=== PATIENT | male | born 1935 | race Caucasian/White ===

== ENCOUNTER 2016-12-12 18:38 | Inpatient (IN) | payer OTHER ==
[~2016-12-12] VITALS: Ht 172.7 cm; Wt 122.7 kg
[~2016-12-12 18:38] MED LIST: ALLOPURINOL100 MG PO; ASCORBIC ACID500 M3 PO; CLARITIN10 MG PO; COUMADIN5 MG PO; FERROUS SULFAT325 MG PO; FUROSEMIDE40 MG PO; LABETALOL HCL200 MG PO; LOSARTAN POTASS50 MG PO; MULTIVITAMIN1 EAC2 PO; NIFEDIPINE ER30 MG PO; SENNA-TIME S T1 EACH PO; STOOL SOFTENER100 M1 PO; TRAMADOL HCL50 MG PO; TYLENOL EXTRA500 MG PO
[2016-12-12 19:14] LABS: EOSINOPHIL (%) 0.7 % (0-5); EOSINOPHIL COUNT 0.1 K/uL (0-0.3); HEMATOCRIT 31.8 % (38.0-50.0); IMMATURE GRANULOCYTE (%) 0.4 % (0.0-0.7); INSTRUMENT ABS NEUTROPHIL CT 5.4 K/uL; LYMPHOCYTE COUNT 0.6 K/uL (1.0-2.8); MCH 27.4 PG (29.0-34.0); MCHC 29.9 G/DL (30.0-36.0); MCV 91.6 FL (86-99); MEAN PLAT.VOLUME 10.1 uM^3 (9.0-12.4); MONOCYTE COUNT 1.3 K/uL (0-0.8); NEUTROPHIL (%) 72.3 % (45-76); NEUTROPHIL COUNT 5.4 K/uL (1.8-6.4); PLATELET COUNT 466 K/uL (156-360); RBC DIS.WIDTH-CV 14.1 % (11.8-14.6); RBC DIS.WIDTH-SD 47.3 % (39-53); RED BLOOD COUNT 3.47 M/uL (4.00-5.50); WHITE BLOOD COUNT 7.4 K/uL (4.1-10.2)
[2016-12-12 19:22] LABS: CHLORIDE 102 mEq/L (99-109); POTASSIUM 4.4 mEq/L (3.7-5.4); SODIUM 134 mEq/L (136-147)
[2016-12-12 19:23] LABS: MAGNESIUM 2.4 mg/dL (1.3-2.7)
[2016-12-12 19:24] LABS: GLUCOSE 101 mg/dL (70-99)
[2016-12-12 19:26] LABS: ANION GAP 15 MEQ/L (2-14)
[2016-12-12 19:28] LABS: GFR ESTIMATE (CALCULATED) 19 mL/min/
[2016-12-12 19:29] LABS: UREA NITROGEN (BUN) 78 mg/dL (9-23)
[2016-12-12 19:51] LABS: PROTHROMBIN TIME 137.9 (9.2-11.2)
[2016-12-12 19:54] LABS: INTER. NORMALIZED RATIO 12.5
[2016-12-12] MEDS ORDERED: LOSARTAN POTAS100 MG PO (20:47)
[2016-12-12] MEDS ORDERED: WARFARIN SODIUM1 MG PO (20:48)
[2016-12-12] MEDS ORDERED: PROMETHAZINE HC25 M1 PO (20:49)
[2016-12-12 22:33] VITALS: BP 140/70
[2016-12-13 02:24] VITALS: BP 90/53
[2016-12-13 06:32] LABS: HEMATOCRIT 28.1 % (38.0-50.0); MCH 27.4 PG (29.0-34.0); MCHC 29.2 G/DL (30.0-36.0); MEAN PLAT.VOLUME 10.2 uM^3 (9.0-12.4); PLATELET COUNT 363 K/uL (156-360); RBC DIS.WIDTH-CV 14.1 % (11.8-14.6); RBC DIS.WIDTH-SD 48.5 % (39-53); RED BLOOD COUNT 2.99 M/uL (4.00-5.50)
[2016-12-13 06:33] LABS: WHITE BLOOD COUNT 4.8 K/uL (4.1-10.2)
[2016-12-13 06:57] LABS: ALKALINE PHOSPHATASE 94 IU/L (3-129); ANION GAP 10 MEQ/L (2-14); CHLORIDE 105 MEQ/L (99-109); GFR ESTIMATE (CALCULATED) 23 mL/min/; GLUCOSE 73 mg/dL (70-99); POTASSIUM 4.3 MEQ/L (3.7-5.4); SAMPLE HEMOLYSIS CHECK 0; SAMPLE ICTERIC CHECK 0; SAMPLE LIPEMIA CHECK 0; SODIUM 137 MEQ/L (136-147); TOTAL BILIRUBIN 0.3 MG/DL (0.0-1.0); UREA NITROGEN (BUN) 73 mg/dL (9-23)
[2016-12-13 07:17] VITALS: BP 106/55
[2016-12-13 07:24] LABS: INTER. NORMALIZED RATIO 2.2; PROTHROMBIN TIME 22.7 (9.2-11.2)
[2016-12-13 11:42] VITALS: BP 102/52
[2016-12-13 15:03] VITALS: BP 116/58
[2016-12-13 19:00] VITALS: BP 137/67
[2016-12-13 22:35] VITALS: BP 125/66
[2016-12-14] VITALS (9 sets, daily range): BP systolic 116–155; BP diastolic 55–90
[2016-12-14 07:09] LABS: HEMATOCRIT 28.4 % (38.0-50.0); MCH 27.5 PG (29.0-34.0); MCHC 28.5 G/DL (30.0-36.0); MCV 96.3 FL (86-99); MEAN PLAT.VOLUME 10.4 uM^3 (9.0-12.4); PLATELET COUNT 351 K/uL (156-360); RBC DIS.WIDTH-CV 14.4 % (11.8-14.6); RBC DIS.WIDTH-SD 50.9 % (39-53); RED BLOOD COUNT 2.95 M/uL (4.00-5.50); WHITE BLOOD COUNT 4.6 K/uL (4.1-10.2)
[2016-12-14 07:29] LABS: INTER. NORMALIZED RATIO 1.3; PROTHROMBIN TIME 13.4 (9.2-11.2); PTT 33.5 (25-32)
[2016-12-14 07:43] LABS: ALKALINE PHOSPHATASE 82 IU/L (3-129); ANION GAP 14 MEQ/L (2-14); CHLORIDE 111 MEQ/L (99-109); GFR ESTIMATE (CALCULATED) 31 mL/min/; GLUCOSE 60 mg/dL (70-99); MAGNESIUM 2.6 mg/dl (1.3-2.7); POTASSIUM 4.6 MEQ/L (3.7-5.4); PREALBUMIN 6.4 mg/dL (10-40); SAMPLE HEMOLYSIS CHECK 0; SAMPLE ICTERIC CHECK 0; SAMPLE LIPEMIA CHECK 0; SODIUM 143 MEQ/L (136-147); TOTAL BILIRUBIN 0.3 MG/DL (0.0-1.0); UREA NITROGEN (BUN) 54 mg/dL (9-23)
[2016-12-14 20:00] LABS: HEMATOCRIT 26.2 % (38.0-50.0)
[2016-12-14 20:18] LABS: BASE EXCESS -13.1 mEq/L (-3 to +3); BICARBONATE 14.1 mEq/L (22-26); CARBOXY HGB 0.7 % (0-5); COMMENTS - BLOOD GASES A+C+; DEVICE VENT; FI02 50 %; MECHANICAL RATE 16 resp/min; METHEMOGLOBIN 0.6 % (0-1.5); MODE AC; PCO2 37 mm Hg (35-45); PEEP 5 CM/H20; PO2 159 mm Hg (80-100); SITE RR; TIDAL VOLUME 500 ML; TOTAL RESP RATE 18 resp/min
[2016-12-14 20:20] LABS: pH 7.19 (7.35-7.45)
[2016-12-14 20:20] LABS: TROP-I INTERPRETATION NEGATIVE; TROPONIN-I 0.07 ng/mL (0.0-0.30)
[2016-12-14 20:24] LABS: ANION GAP 12 MEQ/L (2-14); CHLORIDE 114 MEQ/L (99-109); GFR ESTIMATE (CALCULATED) 34 mL/min/; POTASSIUM 4.5 MEQ/L (3.7-5.4); SAMPLE HEMOLYSIS CHECK 0; SAMPLE ICTERIC CHECK 0; SAMPLE LIPEMIA CHECK 0; SODIUM 140 MEQ/L (136-147); UREA NITROGEN (BUN) 45 mg/dL (9-23)
[2016-12-14 20:25] LABS: GLUCOSE 117 mg/dL (70-99)
[2016-12-14 22:16] LABS: METH RESISTANT S AUREUS PCR NEGATIVE (NEGATIVE)
[2016-12-14 22:24] LABS: PROBE CHECK PASS; SPECIMEN PROCESSING CONTROL PASS
[2016-12-15] VITALS (21 sets, daily range): BP systolic 91–126; BP diastolic 52–76
[2016-12-15 01:48] LABS: ADD MIUA? YES; BILIRUBIN NEGATIVE; BLOOD SMALL; COLOR YELLOW ((YELLOW)); GLUCOSE (STRIP) NEGATIVE; KETONES 20; LEUKOCYTES NEGATIVE; NITRITE NEGATIVE; PROTEIN (STRIP) NEGATIVE; SPECIFIC GRAVITY 1.015 (1.000-1.030); UROBILINOGEN 0.2 MG/DL (0.2-1.0)
[2016-12-15 01:54] LABS: UR CREATININE CONCENTRATION 73.2 MG/DL
[2016-12-15 01:59] LABS: BACTERIA RARE /HPF; EPITHELIAL CELLS RARE /HPF; HYALINE CASTS 0-5 /LPF; MUCUS TRACE /LPF; RED BLOOD CELLS 40-50 /HPF (0-5)
[2016-12-15 07:13] LABS: HEMATOCRIT 26.8 % (38.0-50.0); MCH 26.7 PG (29.0-34.0); MCHC 28.4 G/DL (30.0-36.0); MEAN PLAT.VOLUME 9.9 uM^3 (9.0-12.4); PLATELET COUNT 323 K/uL (156-360); RBC DIS.WIDTH-CV 16.1 % (11.8-14.6); RBC DIS.WIDTH-SD 56.3 % (39-53); RED BLOOD COUNT 2.85 M/uL (4.00-5.50)
[2016-12-15 07:21] LABS: ANION GAP 9 MEQ/L (2-14); CHLORIDE 113 MEQ/L (99-109); GFR ESTIMATE (CALCULATED) 29 mL/min/; IRON 19 MCG/DL (35-150); POTASSIUM 5.1 MEQ/L (3.7-5.4); SAMPLE HEMOLYSIS CHECK 0; SAMPLE ICTERIC CHECK 0; SAMPLE LIPEMIA CHECK 0; SODIUM 140 MEQ/L (136-147); TRIGLYCERIDES 61 MG/DL (Normal: <150); UREA NITROGEN (BUN) 46 mg/dL (9-23)
[2016-12-15 07:23] LABS: GLUCOSE 283 mg/dL (70-99)
[2016-12-15 07:26] LABS: WHITE BLOOD COUNT 18.8 K/uL (4.1-10.2)
[2016-12-15 08:06] LABS: FERRITIN 47 NG/ML (22-322)
[2016-12-15 08:08] LABS: INTACT PARATHYROID HORMONE 77 pg/mL (10-69)
[2016-12-15 12:47] LABS: POINT-OF-CARE METER ID UU14174217
[2016-12-15 18:19] LABS: POINT-OF-CARE METER ID UU13113731
[2016-12-16] VITALS (19 sets, daily range): BP systolic 103–138; BP diastolic 51–89
[2016-12-16 00:27] LABS: POINT-OF-CARE METER ID UU14174217
[2016-12-16 06:15] LABS: ANION GAP 9 MEQ/L (2-14); CHLORIDE 113 MEQ/L (99-109); GFR ESTIMATE (CALCULATED) 26 mL/min/; GLUCOSE 161 mg/dL (70-99); POTASSIUM 4.3 MEQ/L (3.7-5.4); SAMPLE HEMOLYSIS CHECK 0; SAMPLE ICTERIC CHECK 0; SAMPLE LIPEMIA CHECK 0; SODIUM 143 MEQ/L (136-147); UREA NITROGEN (BUN) 51 mg/dL (9-23)
[2016-12-16 06:17] LABS: HEMATOCRIT 23.3 % (38.0-50.0); MCH 26.8 PG (29.0-34.0); MCHC 28.8 G/DL (30.0-36.0); MCV 93.2 FL (86-99); MEAN PLAT.VOLUME 10.2 uM^3 (9.0-12.4); NRBC (%) 0.2 /100 WBC (0-0); PLATELET COUNT 266 K/uL (156-360); RBC DIS.WIDTH-CV 16.2 % (11.8-14.6); RBC DIS.WIDTH-SD 55.7 % (39-53); WHITE BLOOD COUNT 14.7 K/uL (4.1-10.2)
[2016-12-16 08:13] LABS: Estimated Average Glucose 97 mg/dL (70-123)
[2016-12-16 12:29] LABS: POINT-OF-CARE METER ID UU14174217; POINT-OF-CARE USER ID 606021424
[2016-12-16 18:17] LABS: POINT-OF-CARE METER ID UU13113781
[2016-12-16 18:35] LABS: HEMATOCRIT 27.4 % (38.0-50.0); MCV 90.7 FL (86-99)
[2016-12-17 00:37] VITALS: BP 135/71
[2016-12-17 00:45] LABS: POINT-OF-CARE METER ID UU13113781
[2016-12-17 05:03] VITALS: BP 125/58
[2016-12-17 06:59] LABS: HEMATOCRIT 27.5 % (38.0-50.0); MCH 27.1 PG (29.0-34.0); MCHC 30.2 G/DL (30.0-36.0); MCV 89.9 FL (86-99); MEAN PLAT.VOLUME 10.8 uM^3 (9.0-12.4); NRBC (%) 0.4 /100 WBC (0-0); PLATELET COUNT 233 K/uL (156-360); RBC DIS.WIDTH-CV 16.5 % (11.8-14.6); RBC DIS.WIDTH-SD 54.3 % (39-53); WHITE BLOOD COUNT 12.5 K/uL (4.1-10.2)
[2016-12-17 07:02] LABS: RED BLOOD COUNT 3.06 M/uL (4.00-5.50)
[2016-12-17 07:08] VITALS: BP 131/67
[2016-12-17 07:30] LABS: ANION GAP 10 MEQ/L (2-14); CHLORIDE 113 MEQ/L (99-109); GFR ESTIMATE (CALCULATED) 31 mL/min/; GLUCOSE 124 mg/dL (70-99); POTASSIUM 3.9 MEQ/L (3.7-5.4); SAMPLE HEMOLYSIS CHECK 0; SAMPLE ICTERIC CHECK 0; SAMPLE LIPEMIA CHECK 0; SODIUM 143 MEQ/L (136-147); UREA NITROGEN (BUN) 45 mg/dL (9-23)
[2016-12-17 11:07] VITALS: BP 147/71
[2016-12-17 12:07] LABS: POINT-OF-CARE METER ID UU14174216
[2016-12-17 15:02] VITALS: BP 146/68
[2016-12-17 19:30] VITALS: BP 129/70
[2016-12-18] VITALS: BP 138/78
[2016-12-18 07:03] LABS: MCH 27.3 PG (29.0-34.0); MCHC 30.7 G/DL (30.0-36.0); MCV 88.9 FL (86-99); MEAN PLAT.VOLUME 10.6 uM^3 (9.0-12.4); NRBC (%) 0.3 /100 WBC (0-0); PLATELET COUNT 220 K/uL (156-360); RBC DIS.WIDTH-CV 16.3 % (11.8-14.6); RBC DIS.WIDTH-SD 52.9 % (39-53); RED BLOOD COUNT 3.15 M/uL (4.00-5.50); WHITE BLOOD COUNT 12.3 K/uL (4.1-10.2)
[2016-12-18 07:26] LABS: ANION GAP 9 MEQ/L (2-14); CHLORIDE 113 MEQ/L (99-109); GFR ESTIMATE (CALCULATED) 36 mL/min/; GLUCOSE 139 mg/dL (70-99); POTASSIUM 3.9 MEQ/L (3.7-5.4); SAMPLE HEMOLYSIS CHECK 0; SAMPLE ICTERIC CHECK 0; SAMPLE LIPEMIA CHECK 0; SODIUM 144 MEQ/L (136-147); UREA NITROGEN (BUN) 36 mg/dL (9-23)
[2016-12-18 07:50] VITALS: BP 129/61
[2016-12-18 12:41] LABS: POINT-OF-CARE USER ID NUTSLF44
[2016-12-18 12:50] VITALS: BP 132/80
[2016-12-18 16:52] VITALS: BP 145/79
[2016-12-18 18:30] LABS: POINT-OF-CARE METER ID UU13113781
[2016-12-18 20:45] VITALS: BP 140/79
[2016-12-18 23:56] VITALS: BP 145/77
[2016-12-19 04:28] VITALS: BP 157/84
[2016-12-19 05:43] LABS: POINT-OF-CARE METER ID UU14174216
[2016-12-19 06:39] LABS: HEMATOCRIT 27.5 % (38.0-50.0); MCHC 30.5 G/DL (30.0-36.0); MCV 88.4 FL (86-99); MEAN PLAT.VOLUME 10.4 uM^3 (9.0-12.4); PLATELET COUNT 204 K/uL (156-360); RBC DIS.WIDTH-CV 15.9 % (11.8-14.6); RBC DIS.WIDTH-SD 50.5 % (39-53); RED BLOOD COUNT 3.11 M/uL (4.00-5.50); WHITE BLOOD COUNT 11.6 K/uL (4.1-10.2)
[2016-12-19 07:02] LABS: ANION GAP 10 MEQ/L (2-14); CHLORIDE 112 MEQ/L (99-109); GFR ESTIMATE (CALCULATED) 41 mL/min/; GLUCOSE 157 mg/dL (70-99); POTASSIUM 3.8 MEQ/L (3.7-5.4); SAMPLE HEMOLYSIS CHECK 0; SAMPLE ICTERIC CHECK 0; SAMPLE LIPEMIA CHECK 0; SODIUM 145 MEQ/L (136-147); UREA NITROGEN (BUN) 30 mg/dL (9-23)
[2016-12-19 07:54] VITALS: BP 149/83
[2016-12-19 12:34] VITALS: BP 146/88
[2016-12-19 12:47] LABS: POINT-OF-CARE METER ID UU13113781
[2016-12-19 17:09] VITALS: BP 149/77
[2016-12-19 20:00] VITALS: BP 155/87
[2016-12-20] VITALS (7 sets, daily range): BP systolic 137–162; BP diastolic 71–94
[2016-12-20 05:32] LABS: POINT-OF-CARE METER ID UU14174216
[2016-12-20 06:22] LABS: EOSINOPHIL (%) 1.4 % (0-5); EOSINOPHIL COUNT 0.2 K/uL (0-0.3); HEMATOCRIT 26.8 % (38.0-50.0); IMMATURE GRANULOCYTE (%) 1.8 % (0.0-0.7); IMMATURE GRANULOCYTE COUNT 0.2 K/uL; INSTRUMENT ABS NEUTROPHIL CT 10.7 K/uL; LYMPHOCYTE COUNT 0.5 K/uL (1.0-2.8); MCH 26.8 PG (29.0-34.0); MCHC 30.2 G/DL (30.0-36.0); MCV 88.7 FL (86-99); MEAN PLAT.VOLUME 11.1 uM^3 (9.0-12.4); MONOCYTE COUNT 0.9 K/uL (0-0.8); NEUTROPHIL (%) 85.7 % (45-76); NEUTROPHIL COUNT 10.7 K/uL (1.8-6.4); PLATELET COUNT 192 K/uL (156-360); RBC DIS.WIDTH-CV 16.3 % (11.8-14.6); RBC DIS.WIDTH-SD 50.6 % (39-53); RED BLOOD COUNT 3.02 M/uL (4.00-5.50); WHITE BLOOD COUNT 12.5 K/uL (4.1-10.2)
[2016-12-20 06:47] LABS: ANION GAP 10 MEQ/L (2-14); CHLORIDE 111 MEQ/L (99-109); DIRECT BILIRUBIN 0.1 mg/dL (0.0-0.3); GFR ESTIMATE (CALCULATED) 48 mL/min/; GLUCOSE 152 mg/dL (70-99); MAGNESIUM 1.8 mg/dl (1.3-2.7); POTASSIUM 3.7 MEQ/L (3.7-5.4); PREALBUMIN 6.4 mg/dL (10-40); SAMPLE HEMOLYSIS CHECK 0; SAMPLE ICTERIC CHECK 0; SAMPLE LIPEMIA CHECK 0; SODIUM 144 MEQ/L (136-147); TRIGLYCERIDES 150 MG/DL (Normal: <150); UREA NITROGEN (BUN) 28 mg/dL (9-23)
[2016-12-20 06:49] LABS: ALKALINE PHOSPHATASE 107 IU/L (3-129); TOTAL BILIRUBIN 0.2 MG/DL (0.0-1.0)
[2016-12-20 12:02] LABS: POINT-OF-CARE USER ID NUTSLF44
[2016-12-20 19:49] LABS: INTER. NORMALIZED RATIO 1.1; PROTHROMBIN TIME 10.7 (9.2-11.2)
[2016-12-21 03:22] VITALS: BP 145/78
[2016-12-21 06:24] LABS: INTER. NORMALIZED RATIO 1.1; PROTHROMBIN TIME 10.7 (9.2-11.2)
[2016-12-21 06:32] LABS: ANION GAP 9 MEQ/L (2-14); CHLORIDE 109 MEQ/L (99-109); GFR ESTIMATE (CALCULATED) 48 mL/min/; GLUCOSE 144 mg/dL (70-99); SAMPLE HEMOLYSIS CHECK 0; SAMPLE ICTERIC CHECK 0; SAMPLE LIPEMIA CHECK 0; SODIUM 144 MEQ/L (136-147); UREA NITROGEN (BUN) 24 mg/dL (9-23)
[2016-12-21 08:00] VITALS: BP 163/86
[2016-12-21 12:09] VITALS: BP 161/83
[2016-12-21 16:55] VITALS: BP 141/77
[2016-12-21 19:35] VITALS: BP 124/65
[2016-12-21 23:33] VITALS: BP 138/67
[2016-12-22 04:47] VITALS: BP 135/78
[2016-12-22 06:29] LABS: INTER. NORMALIZED RATIO 1.1; PROTHROMBIN TIME 10.8 (9.2-11.2)
[2016-12-22 06:53] LABS: ANION GAP 8 MEQ/L (2-14); CHLORIDE 107 MEQ/L (99-109); GFR ESTIMATE (CALCULATED) 51 mL/min/; GLUCOSE 137 mg/dL (70-99); MAGNESIUM 2.3 mg/dl (1.3-2.7); POTASSIUM 4.3 MEQ/L (3.7-5.4); SAMPLE HEMOLYSIS CHECK 0; SAMPLE ICTERIC CHECK 0; SAMPLE LIPEMIA CHECK 0; SODIUM 141 MEQ/L (136-147); UREA NITROGEN (BUN) 24 mg/dL (9-23)
[2016-12-22 08:00] VITALS: BP 147/78
[2016-12-22 11:45] VITALS: BP 134/64
[2016-12-22 16:00] VITALS: BP 138/61
[2016-12-22 19:21] VITALS: BP 118/59
[2016-12-22 23:46] VITALS: BP 120/65
[2016-12-23 04:02] VITALS: BP 138/69
[2016-12-23 06:49] LABS: INTER. NORMALIZED RATIO 1.1; PROTHROMBIN TIME 10.7 (9.2-11.2)
[2016-12-23 06:56] LABS: ANION GAP 9 MEQ/L (2-14); CHLORIDE 106 MEQ/L (99-109); GFR ESTIMATE (CALCULATED) 56 mL/min/; GLUCOSE 153 mg/dL (70-99); MAGNESIUM 2.4 mg/dl (1.3-2.7); POTASSIUM 4.6 MEQ/L (3.7-5.4); SAMPLE HEMOLYSIS CHECK 0; SAMPLE ICTERIC CHECK 0; SAMPLE LIPEMIA CHECK 0; SODIUM 139 MEQ/L (136-147); UREA NITROGEN (BUN) 28 mg/dL (9-23)
[2016-12-23 07:32] VITALS: BP 146/76
[2016-12-23 12:23] VITALS: BP 128/80
[2016-12-23 16:52] VITALS: BP 144/69
[2016-12-23 19:40] VITALS: BP 123/65
[2016-12-23 23:37] VITALS: BP 119/70
[2016-12-24 04:16] VITALS: BP 141/70
[2016-12-24 07:21] LABS: ANION GAP 8 MEQ/L (2-14); CHLORIDE 107 MEQ/L (99-109); GFR ESTIMATE (CALCULATED) 48 mL/min/; MAGNESIUM 2.2 mg/dl (1.3-2.7); POTASSIUM 4.8 MEQ/L (3.7-5.4); SAMPLE HEMOLYSIS CHECK 0; SAMPLE ICTERIC CHECK 0; SAMPLE LIPEMIA CHECK 0; SODIUM 138 MEQ/L (136-147); UREA NITROGEN (BUN) 26 mg/dL (9-23)
[2016-12-24 07:25] LABS: GLUCOSE 85 mg/dL (70-99)
[2016-12-24 08:30] VITALS: BP 132/73
[2016-12-24 12:10] VITALS: BP 132/68
[2016-12-24 20:08] VITALS: BP 123/75
[2016-12-24 23:12] VITALS: BP 117/72
[2016-12-25 06:46] LABS: ANION GAP 8 MEQ/L (2-14); CHLORIDE 108 MEQ/L (99-109); GFR ESTIMATE (CALCULATED) 48 mL/min/; GLUCOSE 91 mg/dL (70-99); MAGNESIUM 2.2 mg/dl (1.3-2.7); SAMPLE HEMOLYSIS CHECK 0; SAMPLE ICTERIC CHECK 0; SAMPLE LIPEMIA CHECK 0; SODIUM 139 MEQ/L (136-147); UREA NITROGEN (BUN) 23 mg/dL (9-23)
[2016-12-25 07:24] LABS: MCH 27.9 PG (29.0-34.0); MCHC 28.6 G/DL (30.0-36.0); MCV 97.6 FL (86-99); MEAN PLAT.VOLUME 12.1 uM^3 (9.0-12.4); PLATELET COUNT 280 K/uL (156-360); RBC DIS.WIDTH-CV 18.8 % (11.8-14.6); RBC DIS.WIDTH-SD 59.2 % (39-53); RED BLOOD COUNT 2.97 M/uL (4.00-5.50)
[2016-12-25 08:00] VITALS: BP 140/75
[2016-12-25] MEDS ORDERED: TAMSULOSIN HCL0.4 MG PO (11:37)
[2016-12-25] MEDS ORDERED: AMOX TR-K CLV1 EAC4 PO (11:37)
[2016-12-25] MEDS ORDERED: LOPRESSOR25 MG PO (11:37)
[2016-12-25] MEDS ORDERED: CLINDAMYCIN HC300 MG PO (11:38)
== END 2016-12-25 13:25 | disposition home health service (06) | DRG 329 ==
LOC: EME 18:38 → EDOF 20:27 → 5EAST 20:27 → 4EAST 20:27 → 5EAST 22:20 → 4WEST 12-14 20:42 → 4EAST 12-16 14:57 → 4WEST 12-16 15:17 → 4EAST 12-16 15:36
PROVIDERS: Emergency Medicine; Internal Medicine; Internal Medicine Nephrology; Physician Assistant; Surgery
DX: C18.0 Malignant neoplasm of cecum (principal); C77.2 Secondary and unspecified malignant neoplasm of intra-abdominal lymph nodes; I48.1 Persistent atrial fibrillation; Z79.01 Long term (current) use of anticoagulants; M10.9 Gout, unspecified; I13.0 Hypertensive heart and chronic kidney disease with heart failure and stage 1 through stage 4 chronic kidney disease, or unspecified chronic kidney disease; N18.3 Chronic kidney disease, stage 3 (moderate); I50.30 Unspecified diastolic (congestive) heart failure; N17.9 Acute kidney failure, unspecified; D50.9 Iron deficiency anemia, unspecified; N28.89 Other specified disorders of kidney and ureter; G47.33 Obstructive sleep apnea (adult) (pediatric); E78.00 Pure hypercholesterolemia, unspecified; E86.0 Dehydration; E87.1 Hypo-osmolality and hyponatremia; E66.9 Obesity, unspecified; Z68.41 Body mass index [BMI] 40.0-44.9, adult; E43 Unspecified severe protein-calorie malnutrition; E87.2 Acidosis; K40.90 Unilateral inguinal hernia, without obstruction or gangrene, not specified as recurrent; N40.1 Benign prostatic hyperplasia with lower urinary tract symptoms; R33.8 Other retention of urine; R39.11 Hesitancy of micturition; K40.30 Unilateral inguinal hernia, with obstruction, without gangrene, not specified as recurrent; E88.09 Other disorders of plasma-protein metabolism, not elsewhere classified; I25.10 Atherosclerotic heart disease of native coronary artery without angina pectoris; E78.5 Hyperlipidemia, unspecified; R31.29 Other microscopic hematuria; Y84.6 Urinary catheterization as the cause of abnormal reaction of the patient, or of later complication, without mention of misadventure at the time of the procedure; S37.39XA Other injury of urethra, initial encounter; R60.0 Localized edema; I47.2 Ventricular tachycardia; B95.2 Enterococcus as the cause of diseases classified elsewhere; D63.1 Anemia in chronic kidney disease
CPT/HCPCS: 36600; 70450; 71010; 74000; 74176; 80048; 80048 91; 80053; 80069; 81003; 82248; 82306; 82570; 82607; 82728; 82746; 82803; 82948; 83036; 83540; 83605; 83735; 83970; 84100; 84134; 84156; 84466; 84478; 84484; 84540; 84550; 84630 90; 85014; 85018; 85025; 85027; 85610; 85730; 86900; 86901; 86920; 87070; 87075; 87076; 87077; 87185; 87186; 87205; 87641; 88309; 93005; 93306; 93971; 94002; 94010; 94799; 97530 GO; 97530 GP; 99202; 99281; 99285; J0131; J0295; J0330; J0881; J1100; J1170; J1644; J1756; J1815; J2405; J2704; J2710; J3010; J3430; J7030; J7042; J7050; P9016; P9047; S0028

== ENCOUNTER 2017-01-03 12:16 | Day surgery (SDC) | payer OTHER ==
[~2017-01-03 12:16] MED LIST changes: +AMOX TR-K CLV1 EAC4 PO; +CLINDAMYCIN HC300 MG PO; +LOPRESSOR25 MG PO; +LOSARTAN POTAS100 MG PO; +PROMETHAZINE HC25 M1 PO; +TAMSULOSIN HCL0.4 MG PO; +WARFARIN SODIUM1 MG PO
== END 2017-01-03 13:26 | disposition home or self-care (01) ==
LOC: AMB 12:16
PROC: 0YJ5XZZ Inspection of Right Inguinal Region, External Approach (ICD-10-PCS; principal; 2017-01-03)
DX: K40.90 Unilateral inguinal hernia, without obstruction or gangrene, not specified as recurrent (principal); C18.0 Malignant neoplasm of cecum; C77.2 Secondary and unspecified malignant neoplasm of intra-abdominal lymph nodes; E66.9 Obesity, unspecified; N28.89 Other specified disorders of kidney and ureter
CPT/HCPCS: 99211

== ENCOUNTER 2017-02-04 10:22 | Day surgery (SDC) | payer OTHER ==
[~2017-02-04] VITALS: Ht 172.7 cm; Wt 106.0 kg
[~2017-02-04 10:22] MED LIST changes: +LOVENOX120 MG/0.8 SC; +WARFARIN SODIUM5 MG PO
[2017-02-04 10:57] VITALS: BP 176/89
[2017-02-04 10:58] LABS: INTER. NORMALIZED RATIO 1.1; PROTHROMBIN TIME 11.4 (9.2-11.2)
[2017-02-04] MEDS ORDERED: HYDROCODON-ACE1 EAC7 PO (16:05)
[2017-02-04 17:56] VITALS: BP 160/74
[2017-02-05 00:03] VITALS: BP 150/73
[2017-02-05 03:58] VITALS: BP 147/67
[2017-02-05 08:15] VITALS: BP 165/82
[2017-02-05 12:08] VITALS: BP 122/80
== END 2017-02-05 15:08 | disposition home or self-care (01) ==
LOC: SDC 10:22 → 2SOUTH 15:25 → SDC 15:46 → 2EASTP 16:50
PROVIDERS: Surgery
DX: K40.30 Unilateral inguinal hernia, with obstruction, without gangrene, not specified as recurrent (principal); E66.9 Obesity, unspecified; K66.0 Peritoneal adhesions (postprocedural) (postinfection); I48.2 Chronic atrial fibrillation; Z79.01 Long term (current) use of anticoagulants; E78.5 Hyperlipidemia, unspecified; D64.9 Anemia, unspecified; N18.9 Chronic kidney disease, unspecified; Z85.038 Personal history of other malignant neoplasm of large intestine; R33.9 Retention of urine, unspecified; I27.2 Other secondary pulmonary hypertension; N28.89 Other specified disorders of kidney and ureter; K44.9 Diaphragmatic hernia without obstruction or gangrene; K21.9 Gastro-esophageal reflux disease without esophagitis; I25.10 Atherosclerotic heart disease of native coronary artery without angina pectoris; Z96.641 Presence of right artificial hip joint; M10.9 Gout, unspecified; B35.6 Tinea cruris; E66.01 Morbid (severe) obesity due to excess calories; Z68.35 Body mass index [BMI] 35.0-35.9, adult; Z91.013 Allergy to seafood; Z91.09 Other allergy status, other than to drugs and biological substances; Z88.8 Allergy status to other drugs, medicaments and biological substances
CPT/HCPCS: 85610; 94799; C1781; G0378; J0330; J0461; J0690; J1170; J1650; J2250; J2405; J3010; J7120; S0020

== ENCOUNTER 2017-08-12 06:56 | Day surgery (SDC) | payer OTHER ==
[~2017-08-12] VITALS: Ht 175.3 cm; Wt 105.2 kg
[~2017-08-12 06:56] MED LIST changes: +COMPAZINE10 MG PO; +ELIQUIS2.5 MG PO; +HYDROCODON-ACE1 EAC7 PO; +K-DUR20 MEQ PO; +LOMOTIL TABLET1 EACH PO; +METRONIDAZOLE500 MG PO; +PROBIOTIC1 EAC1 PO; +SODIUM BICARBO325 MG PO
== END 2017-08-12 09:21 | disposition home or self-care (01) ==
LOC: CATH 06:56
DX: Z45.2 Encounter for adjustment and management of vascular access device (principal); I87.2 Venous insufficiency (chronic) (peripheral); C18.9 Malignant neoplasm of colon, unspecified; I25.10 Atherosclerotic heart disease of native coronary artery without angina pectoris; I48.91 Unspecified atrial fibrillation; I10 Essential (primary) hypertension; Z79.01 Long term (current) use of anticoagulants
CPT/HCPCS: C1751; C1894; J1644; J2250; J3010; S0020